=== PATIENT | female | born 1960 | race Caucasian/White ===

== ENCOUNTER → 2016-12-09 | Outpatient (CLI) | payer OTHER | LOC: CIMAGING 13:51 | DX: Z12.31 Encounter for screening mammogram for malignant neoplasm of breast (principal) | CPT/HCPCS: G0202 ==

== ENCOUNTER → 2017-05-18 | Outpatient (CLI) | payer OTHER | LOC: CIMAGING 08:08 | DX: R10.13 Epigastric pain (principal); I70.0 Atherosclerosis of aorta | CPT/HCPCS: 76700-PO ==

== ENCOUNTER → 2017-06-11 | Outpatient (CLI) | payer OTHER | LOC: FIMAGING 08:08 | PROVIDERS: ATTEND Nurse Practitioner Family | DX: R10.13 Epigastric pain (principal); R11.10 Vomiting, unspecified; R19.7 Diarrhea, unspecified; K82.9 Disease of gallbladder, unspecified | CPT/HCPCS: 78227; A9537 ==

== ENCOUNTER 2017-07-28 06:32 | Day surgery (SDC) | payer OTHER ==
[~2017-07-28 06:32] MED LIST: cefOXitin SODIUM 2 GM in STERILE WATER INJ 21 ML IV ONE
[2017-07-28] MEDS ORDERED: LIDOCAINE 1% 2 ML INJ ID PRN (06:53)
[2017-07-28] MEDS ORDERED: LR 1,000 ML IV ONE (06:53)
[2017-07-28 07:20] VITALS: PULSE 63
--- NOTE | 2017-07-28 07:21 | PDHPUP ---
History & Physical Update H&P update statement: This history and physical update is based on an assessment of the patient which was completed after admission or registration (within 24 hours), but prior to the surgery/procedure.
[2017-07-28] MEDS ORDERED: ceFAZolin 1 GM/5 ML SYR ONE (07:22)
[2017-07-28] MEDS ORDERED: BUPIVACAINE 0.5% 30 ML SDV ONE (07:22)
[2017-07-28] MEDS ORDERED: HEPARIN 1000 UNIT/1 ML MDV ONE (07:22)
[2017-07-28] MEDS ORDERED: MIDAZOLAM 2 MG/2 ML VIAL IVP ONE (07:43)
--- NOTE | 2017-07-28 07:48 | PDANEPAE ---
ANE History of Present Illness here for lap balta ANE Past Medical History - Cardiovascular History Hx Hypertension: Yes Hx Arrhythmias: No Hx Chest Pain: No Hx Coronary Artery / Peripheral Vascular Disease: No Hx CHF / Valvular Disease: No Hx Palpitations: No - Pulmonary History Hx COPD: No Hx Asthma/Reactive Airway Disease: No Hx Recent Upper Respiratory Infection: No Hx Oxygen in Use at Home: No Hx Sleep Apnea: No Sleep Apnea Screening Result - Last Documented: Negative - Neurologic History Hx Cerebrovascular Accident: No Hx Seizures: No Hx Dementia: No - Endocrine History Hx Diabetes: No - Renal History Hx Renal Disorders: No - Liver History Hx Hepatic Disorders: No - Neurological & Psychiatric Hx Hx Neurological and Psychiatric Disorders: No - Cancer History Hx Cancer: Yes Cancer History Comment: cervical with mets - Congenital Disorder History Hx Congenital Disorders: No - GI History Hx Gastrointestinal Disorders: Yes Gastrointestinal History Comment: upper abd pain - Chronic Pain History Chronic Pain: Yes - Surgical History Prior Surgeries: tonsillectomy. carpal tunnel release. re-attachment great toe. laparoscopy ANE Review of Systems Review of systems is: negative Review of Systems: - Exercise capacity Exercise capacity: >=4 METS METS (RN): 4 METS ANE Patient History - Allergies Allergies/Adverse Reactions: hydrocodone bitartrate [From Vicodin] Allergy (Verified 07/27/17 16:58) insomnia ibuprofen Allergy (Verified 07/27/17 16:57) HAYFEVER Allergy (Uncoded 03/31/15 19:15) ITCHY EYES/RUNNY NOSE - Home Medications Home medications: home medication list seen and reviewed Home Medications: Aspirin [Aspirin 81mg (OTC)] 81 mg PO DAILY 07/05/12 [Last Taken 06/28/12] ESCITALOPRAM OXALATE [Lexapro] 20 mg PO DAILY 07/05/12 [Last Taken 07/05/12] Simvastatin [Zocor 40 mg (RX)] 40 mg PO DAILY18 07/05/12 [Last Taken 07/05/12] Verapamil ER [Calan SR/ER 240MG (RX)] 240 mg PO DAILY8 07/05/12 [Last Taken 01/08] Neurontin 300 MG (*) DAILY20 07/27/17 [Last Taken Unknown] Omeprazole 07/27/17 [Last Taken Unknown] - NPO status NPO Status: no food or drink >8 hours NPO Since - Liquids (Date): 07/27/17 NPO Since - Liquids (Time): 21:00 NPO Since - Solids (Date): 07/27/17 NPO Since - Solids (Time): 18:00 - Smoking Hx Smoking Status: Current every day smoker - Family Anes Hx Family Hx Anesthesia Complications: none ANE Labs/Vital Signs - Vital Signs Vital Signs: reviewed preoperatively; see RN documention for details Blood Pressure: 105/59 Heart Rate: 63 Respiratory Rate: 16 O2 Sat (%): 96 Height: 165.1 cm Weight: 71.214 kg ANE Physical Exam - Airway Neck exam: FROM Mallampati Score: Class 1 - Pulmonary Pulmonary: no respiratory distress - Cardiovascular Cardiovascular: regular rate and rhythym ANE Anesthesia Plan Anesthesia Plan: general endotracheal anesthesia
[2017-07-28] MEDS ORDERED: PROPOFOL/EMULSION 500 MG/50 ML BOTTLE IV ONE (07:52)
[2017-07-28] MEDS ORDERED: fentaNYL 100 MCG/2 ML INJ ONE ×3 (07:54→09:35)
[2017-07-28] MEDS ORDERED: NALOXONE HCL 0.4 MG/ML INJ IVP PRN ×2 (08:20→09:37)
[2017-07-28] MEDS ORDERED: ALBUTEROL 3 ML DEYVIAL IH PRN (08:20)
[2017-07-28] MEDS ORDERED: DEXAMETHASONE 4 MG/ML VIAL IVP PRN (08:20)
[2017-07-28] MEDS ORDERED: ONDANSETRON 4 MG/2 ML VIAL IVP PRN (08:20)
[2017-07-28] MEDS ORDERED: LR 500 ML IV PRN (08:20)
[2017-07-28] MEDS ORDERED: SUGAMMADEX SODIUM 200 MG/2 ML VIAL IVP ONE (08:48)
[2017-07-28] MEDS ORDERED: HYDROmorphONE/DILAUDID 1 MG/ML INJ ONE ×2 (09:13→09:35)
[2017-07-28] MEDS ORDERED: ONDANSETRON 4 MG/2 ML VIAL ONE ×2 (09:13→09:29)
--- NOTE | 2017-07-28 09:16 | POSTANESTH ---
Post Anesthetic Evaluation Cardiovascular Status: Normal, Stable Respiratory Status: Normal, Stable Level of Consciousness/Mental Status: Can Participate in Eval Pain Control: Adequate, Prn Tx Ordered Nausea/Vomiting Control: Adequate, Prn Tx Ordered Complications Possibly Related to Anesthesia: None Noted
[2017-07-28] MEDS: fentaNYL 100 MCG/2 ML INJ IVP PRN ×3 (09:17→09:40)
[2017-07-28] MEDS: HYDROmorphONE/DILAUDID 1 MG/ML INJ IVP PRN ×3 (09:17→09:41)
--- NOTE | 2017-07-28 09:29 | POSTOPPROG ---
Post Op Note Date of Operation: 07/28/17 Surgeon: Loy Redmond Data Analyst: Toshia Dewitt Anesthesiologist: Greg Faye Anesthesia: GET(General Endotracheal) Pre-op Diagnosis: biliary dyskinesia Post-op Diagnosis: same Procedure: lap balta Findings: thin walled gallbladder, no staones Inf/Abcess present in the surg proc area at time of surgery?: No EBL: Minimal Complications: none Specimen(s): gallbladder to pathology
[2017-07-28] MEDS ORDERED: PROMETHAZINE HCL 25 MG/ML INJ IVP PRN (09:37)
[2017-07-28 11:55] VITALS: RESP 14
[2017-07-28 11:58] VITALS: BP 115/70
[2017-07-28 11:59] VITALS: TEMP 98.8
[2017-07-28 12:28] VITALS: O2SAT 96
--- NOTE | 2017-07-29 14:02 | GOP ---
[f rep st] OPERATIVE REPORT DATE OF OPERATION: 07/28/2017 SURGEON: Loy Redmond MD ENGINEERING DIRECTOR: Annie Trujillo PREOPERATIVE DIAGNOSIS: Biliary dyskinesia. POSTOPERATIVE DIAGNOSIS: Biliary dyskinesia. PROCEDURE PERFORMED: Laparoscopic cholecystectomy. FINDINGS: The patient was found to have a noninflamed gallbladder with no obvious stones. Ducts wer e small. There was no other evidence in the abdomen of metastatic disease. She had some minor adhes ions in the pelvis. ESTIMATED BLOOD LOSS: Negligible. DESCRIPTION OF PROCEDURE: The patient was taken to the operating room where she received satisfactor y general endotracheal anesthesia by Dr. Faye. She was placed in supine position and prepped and d raped in the usual sterile fashion. A periumbilical incision was made, a Veress was needle inserted and pneumoperitoneum was established. A trocar was introduced. Laparoscope introduced. Good visualization was obtained. Three other trocars were placed in the upper abdomen under direct vision. The gallbladder was elevat ed up. Adhesions were taken down. The cystic triangle was carefully exposed. The cystic duct and c ystic artery were isolated and multiply hemoclipped and divided, with care to avoid injury to the com mon bile duct as a good clear view had been created. The peritoneum of the gallbladder was incised a nd the gallbladder was dissected free off the bed of the hepatic fossa and extracted through the uppe r midline port site. The wound was irrigated. Hemostasis was assured. The remainder of the abdomen was visualized with t he laparoscope, with no major findings encountered. Her appendix was normal. She did have some leia r adhesions in the pelvis and no evidence of liver metastases. Trocars were removed under direct vision and pneumoperitoneum was released. Trocar sites were closed with 0 Vicryl for the fascia, 4-0 Monocryl subcuticular stitch for the skin. All layers infiltrated with 0.5% Marcaine. COMPLICATIONS: None. Taken to recovery room in good condition. /[id number]/MODL
== END 2017-07-28 12:25 | disposition home or self-care (01) ==
LOC: FSGY 06:32
PROVIDERS: ATTEND Surgery
PROC: 0FT44ZZ Resection of Gallbladder, Percutaneous Endoscopic Approach (ICD-10-PCS; principal; 2017-07-28 08:00)
DX: K82.8 Other specified diseases of gallbladder (principal)
CPT/HCPCS: J0694; J1170; J2250; J2405; J2704; J3010

== ENCOUNTER 2017-08-27 10:47 | Emergency (ER) | payer OTHER ==
--- NOTE | 2017-08-27 11:30 | EDPHY ---
H & P Stated Complaint: vomiting and diarrhea since 8pm Time Seen by Provider: 08/27/17 11:02 HPI/ROS: CHIEF COMPLAINT: Abdominal pain, vomiting and diarrhea HISTORY OF PRESENT ILLNESS: This is a 57-year-old female with a long history of intermittent abdominal pain. She presents today with over 12 hr of left upper abdominal pain, vomiting, and diarrhea. She states that diarrhea is not an acute problem for her, that she frequently experiences diarrhea. She has had intermittent upper abdominal pain with vomiting for over 4 years. On July 28 of this year she underwent laparoscopic cholecystectomy, with the hopes that her pain would not recur. Prior to that surgery she had nuclear medicine study of her pedal biliary system. It showed gallbladder dysfunction with a decreased ejection fraction of 28%. She had done well postoperatively until last night when she developed pain, vomiting, and diarrhea. She has not had fever. This is consistent with her previous similar episodes. She took a Bentyl 8 hr ago with no relief. She moved her bowels just before coming to the emergency department. She has a history of cervical cancer for which she underwent surgery that revealed metastatic disease. Surgery was followed by radiation and chemotherapy. She states that she is now cancer free. REVIEW OF SYSTEMS: A ten point review of systems was performed and is negative with the exception of the items mentioned in the HPI. Past medical/surgical history: 1. Cervical cancer 2. Hypertension 3. Lower extremity stenting 4. Laparoscopic cholecystectomy Social history: General Appearance: Alert. Vital signs reviewed. Blood pressure 147/101, heart rate 47. Afebrile. Eyes: Pupils equal and round, no conjunctival injection, no discharge. Anicteric. ENT, Mouth: Mucous membranes are moist, no oropharyngeal erythema or edema. Neck: No lymphadenopathy, supple. Respiratory: Lungs are clear to auscultation; no wheezes, rales, or rhonchi. Cardiovascular: Regular rate and rhythm; no murmur, rub, or gallop. Gastrointestinal: Abdomen is soft with mild diffuse tenderness and somewhat worse tenderness in the midepigastrium and left upper quadrant, no guarding,, no masses or organomegaly, bowel sounds hypoactive. Skin: Warm and dry, no rashes on exposed skin, normal color. Back: Nontender to palpation over the thoracolumbar spine. No CVAT. Extremities: No lower extremity edema, no calf tenderness or swelling. Neurological: Alert and oriented. Moving all four extremities easily and equally. Psychiatric: Normal affect. - Personal History Current Tetanus Diphtheria and Acellular Pertussis (TDAP): No Tetanus Vaccine Date: 2009 - Medical/Surgical History Hx Asthma: No Hx Chronic Respiratory Disease: No Hx Diabetes: No Hx Cardiac Disease: No Hx Renal Disease: No Hx Cirrhosis: No Hx Alcoholism: No Hx HIV/AIDS: No Hx Splenectomy or Spleen Trauma: No Other PMH: cervical ca w/ radiation therapy; has lots of scarring/ complications. htn. cholesterol. STENTS IN LEG, balta, recurring abdominal pain. - Social History Smoking Status: Current every day smoker Constitutional: Initial Vital Signs Temperature (C) 36.8 C 08/27/17 10:56 Heart Rate 57 L 08/27/17 10:56 Respiratory Rate 18 08/27/17 10:56 Blood Pressure 147/101 H 08/27/17 10:56 O2 Sat (%) 96 08/27/17 10:56 O2 Delivery Mode Room Air Allergies/Adverse Reactions: ibuprofen Allergy (Verified 08/27/17 11:00) HAYFEVER Allergy (Uncoded 08/27/17 11:00) ITCHY EYES/RUNNY NOSE Home Medications: Medication Instructions Recorded Aspirin [Aspirin 81mg (OTC)] 81 mg PO DAILY 07/05/12 ESCITALOPRAM OXALATE [Lexapro] 20 mg PO DAILY 07/05/12 Simvastatin [Zocor 40 mg (RX)] 40 mg PO DAILY18 07/05/12 Verapamil ER [Calan SR/ER 240MG 240 mg PO DAILY8 07/05/12 (RX)] traMADol [Ultram] 50 mg PO Q4-6PRN PRN #20 tab 10/06/12 Neurontin 300 MG (*) DAILY20 07/27/17 oxyCODONE/APAP 5/325 [Percocet 1 - 2 tab PO Q6H PRN #20 tab 07/28/17 5/325 (*)] Bentyl 10 MG (*) 08/27/17 Ondansetron Odt [Zofran Odt 4 mg 4 mg PO Q4 PRN #10 tab 08/27/17 (RX)] Medical Decision Making ED Course/Re-evaluation: Recurrence of her chronic intermittent abdominal pain and vomiting. In the emergency department she received 2 L IV normal saline, Dilaudid 0.5 mg IV, and Zofran 4 mg IV. She had been taking she acid blocking medications prior to her cholecystectomy but stopped these after the surgery, with the thought that she would be unlikely to need them. She has had multiple attempts at diagnosis in the past and is here today hoping for symptom relief. She was re-evaluated that 12:30 p.m.. At that time she was feeling markedly better. She has not had vomiting and would like to try some ice chips. On re- examine abdomen is soft and mildly diffusely tender, no peritoneal signs. I reviewed her laboratory studies. Liver functions and lipase are normal. She plans to follow up with her primary care physician and also with her surgeon, Dr. Redmond. I do not suspect appendicitis, given the location and chronicity of her pain. Lab studies suggest that this is not pancreatitis. I do not think that she has a bowel obstruction, as she has been having bowel movements. She understands that she is at risk of bowel obstruction, given her surgeries. 1345: Patient was re-evaluated. Abdomen is soft and nontender. Bowel sounds are normal. She has tolerated water and has urinated. She is comfortable returning home. 1400: Patient had a resurgence of her pain. On re-examine her abdomen remains soft and nontender. She was given and oral Percocet. She is comfortable returning home. She has Percocet at home. She is given a prescription for Zofran to use as needed. Differential Diagnosis: Abdominal pain including but not limited to bowel obstruction, appendicitis, biliary colic, gastritis and urinary tract infection. - Data Points Laboratory Results: Laboratory Results 08/27/17 11:30 08/27/17 11:30 08/27/17 08/27/17 11:30 11:30 WBC 9.92 10^3/uL H 10^3/uL (3.80-9.50) RBC 5.21 10^6/uL 10^6/uL (4.18-5.33) Hgb 15.5 g/dL g/dL (12.6-16.3) Hct 46.4 % % (38.0-47.0) MCV 89.1 fL fL (81.5-99.8) MCH 29.8 pg pg (27.9-34.1) MCHC 33.4 g/dL g/dL (32.4-36.7) RDW 12.9 % % (11.5-15.2) Plt Count 255 10^3/uL 10^3/uL (150-400) MPV 8.8 fL fL (8.7-11.7) Neut % (Auto) 91.5 % H % (39.3-74.2) Lymph % (Auto) 6.0 % L % (15.0-45.0) [place] % (Auto) 2.0 % L % (4.5-13.0) Eos % (Auto) 0.0 % L % (0.6-7.6) Baso % (Auto) 0.1 % L % (0.3-1.7) Nucleat RBC Rel Count 0.0 % % (0.0-0.2) Absolute Neuts (auto) 9.07 10^3/uL H 10^3/uL (1.70-6.50) Absolute Lymphs (auto) 0.60 10^3/uL L 10^3/uL (1.00-3.00) Absolute Monos (auto) 0.20 10^3/uL L 10^3/uL (0.30-0.80) Absolute Eos (auto) 0.00 10^3/uL L 10^3/uL (0.03-0.40) Absolute Basos (auto) 0.01 10^3/uL L 10^3/uL (0.02-0.10) Absolute Nucleated RBC 0.00 10^3/uL 10^3/uL (0-0.01) Immature Gran % 0.4 % % (0.0-1.1) Immature Gran # 0.04 10^3/uL 10^3/uL (0.00-0.10) Sodium 141 mEq/L mEq/L (135-145) Potassium 4.1 mEq/L mEq/L (3.5-5.2) Chloride 101 mEq/L mEq/L (97-110) Carbon Dioxide 25 mEq/l mEq/l (22-31) Anion Gap 15 mEq/L mEq/L (8-16) BUN 12 mg/dL mg/dL (7-23) Creatinine 0.7 mg/dL mg/dL (0.6-1.0) Estimated GFR > 60 Glucose 141 mg/dL H mg/dL (70-100) Calcium 9.5 mg/dL mg/dL (8.5-10.4) Total Bilirubin 0.4 mg/dL mg/dL (0.1-1.4) Conjugated Bilirubin 0.2 mg/dL mg/dL (0.0-0.5) Unconjugated Bilirubin 0.2 mg/dL mg/dL (0.0-1.1) AST 18 IU/L IU/L (14-46) ALT 23 IU/L IU/L (9-52) Alkaline Phosphatase 77 IU/L IU/L (38-126) Total Protein 6.8 g/dL g/dL (6.3-8.2) Albumin 4.0 g/dL g/dL (3.5-5.0) Lipase 82 IU/L IU/L (23-300) Medications Given: Discontinued Medications Hydromorphone HCl (Dilaudid) 0.5 mg IVP EDNOW ONE Stop: 08/27/17 11:51 Last Admin: 08/27/17 12:00 Dose: 0.5 mg Sodium Chloride (Ns) 1,000 mls @ 0 mls/hr IV EDNOW ONE; Wide Open PRN Reason: Protocol Stop: 08/27/17 11:42 Last Admin: 08/27/17 11:45 Dose: 1,000 mls Sodium Chloride (Ns) 1,000 mls @ 0 mls/hr IV ONCE ONE PRN Reason: Wide Open Stop: 08/27/17 12:51 Last Admin: 08/27/17 12:55 Dose: 1,000 mls Ondansetron HCl (Zofran) 4 mg IVP EDNOW ONE Stop: 08/27/17 11:42 Last Admin: 08/27/17 11:46 Dose: 4 mg Oxycodone/Acetaminophen (Percocet 5/325) 1 tab PO EDNOW ONE Stop: 08/27/17 14:11 Last Admin: 08/27/17 14:27 Dose: 1 tab Departure - Departure Disposition: Home, Routine, Self-Care Clinical Impression: Abdominal pain Qualifiers: Abdominal location: left upper quadrant Qualified Code(s): R10.12 - Left upper quadrant pain Condition: Good Instructions: Ondansetron (By mouth), Abdominal Pain (ED) Referrals: Briana Benjamin MD [Primary Care Provider] - As per Instructions Loy Redmond MD [Medical Doctor] - As per Instructions Prescriptions: Ondansetron Odt [Zofran Odt 4 mg (RX)] 4 mg PO Q4 PRN #10 tab PRN Reason: nausea
[2017-08-27] MEDS ORDERED: NS 1,000 ML IV ONE ×2 (11:41→12:50)
[2017-08-27] MEDS ORDERED: ONDANSETRON 4 MG/2 ML VIAL IVP ONE (11:41)
[2017-08-27 11:45] LABS: PLATELET COUNT 255 10^3/uL (150-400)
[2017-08-27] MEDS ORDERED: HYDROmorphONE/DILAUDID 2 MG/ML INJ IVP ONE (11:50)
[2017-08-27 13:57] VITALS: BP 112/81; PULSE 77; RESP 16; TEMP 99; O2SAT 93
[2017-08-27] MEDS ORDERED: OXYCODONE/APAP 5/325 TAB PO ONE (14:10)
== END 2017-08-27 14:36 | disposition home or self-care (01) ==
LOC: CED 10:47
DX: R10.12 Left upper quadrant pain (principal); E86.9 Volume depletion, unspecified; I10 Essential (primary) hypertension; F17.200 Nicotine dependence, unspecified, uncomplicated; Z85.41 Personal history of malignant neoplasm of cervix uteri; Z79.82 Long term (current) use of aspirin; Z90.49 Acquired absence of other specified parts of digestive tract
CPT/HCPCS: 80048-PO; 80076-PO; 83690-PO; 85025-PO; 96374; J1170; J2405

== ENCOUNTER → 2017-09-04 | Outpatient (CLI) | payer OTHER | LOC: FIMAGING 09:22 | PROVIDERS: ATTEND Surgery | DX: K44.9 Diaphragmatic hernia without obstruction or gangrene (principal); K57.12 Diverticulitis of small intestine without perforation or abscess without bleeding ==

== ENCOUNTER 2018-02-19 07:35 | Emergency (ER) | payer OTHER ==
--- NOTE | 2018-02-19 07:41 | EDPHY ---
H & P Time Seen by Provider: 02/19/18 07:40 HPI/ROS: CHIEF COMPLAINT: Left leg and groin pain HISTORY OF PRESENT ILLNESS: Patient had a procedure including an enema down at [facility] just over 2 weeks ago as part of evaluation for colonic reconstructions secondary to her cervical cancer. Couple of days after that she started getting pain in her left groin and left upper leg which is moderate at rest and severe with certain motions. She says that moving or lifting her left leg makes it worse. It is not associated with fever or chills or weakness or numbness in the left foot. It is not associated with any change in her abdominal symptoms. She did get a little bit of red blotchy rash which has been on and off for the past couple of days. This rash is located on the anterior thigh. No back pain and no leg swelling. REVIEW OF SYSTEMS: Eye: no change in vision ENT: no sore throat Cardiac: no chest pain or syncope Pulmonary: no cough or SOB Abdomen: She has intermittent abdominal pain in no change with this, she has some chronic diarrhea which is unchanged, no vomiting. Musculoskeletal: HPI Skin: HPI no vesicles Neuro: No weakness or numbness in the left foot Constitutional: no fever : no urinary symptoms A comprehensive 10 point review of systems is otherwise negative aside from elements mentioned in the history of present illness. PAST MEDICAL HISTORY: Emergency department visit dated 08/27/2017 personally reviewed includes laparoscopic cholecystectomy, hypertension, metastatic cervical cancer, venous vascular stent in left leg by Dr. Cleaning for compression occlusion from cancer but without DVT, chronic intermittent abdominal pain and vomiting Social history: Tobacco smoker General Appearance: Alert and conversant, cooperative. Eyes: No scleral icterus. ENT, Mouth: Normal mucous membranes. Respiratory: Normal respiratory effort, breath sounds equal, lungs are clear to auscultation. Cardiovascular: Regular rate and rhythm. Normal dorsalis pedis pulse in the left foot. Gastrointestinal: Abdomen is soft and non tender. No inguinal hernia palpated. Non tender above the inguinal ligament area. Neurological: Alert, face symmetric, normal motor and sensory in extremities. Ambulatory to the room. Toes downgoing bilaterally. Normal dorsiflexion and plantarflexion. SLR negative. Skin: She has 2 or 3 very faint papules on the left anterior thigh but no vesicles, no urticaria, no petechiae or purpura, not mottled. Not hot or cold to the touch. No lymphangitis. Musculoskeletal: Patient has pain in the left groin with external rotation of her hip. She has pain when I palpate in the proximal left thigh and inguinal area on the musculature. No masses or hernia or firm area is palpated. Compartments in left thigh are soft. No pain with internal rotation. Psychiatric: Not agitated. Emergency Department course/MDM: Think it is unlikely the patient has arterial occlusion, incarcerated hernia, hip joint infection, bowel obstruction or acute surgical abdominal process, or shingles. Plan for ultrasound to evaluate for reocclusion of the left leg stent and x-ray to look at her left hip. Patient declined additional pain medications, her goal in the ED visit is to ensure she does not have acute medical or surgical emergent condition. 842: [place], no DVT, normal exam, no fluid collection or stent problem seen. Xray personally interpreted as negative. More likely to be muscular, groin strain, symptomatic treatment discussed, she says she has adequate resources/medications for pain at home. Smoking Status: Current every day smoker Constitutional: Initial Vital Signs Temperature (C) 37.0 C 02/19/18 07:57 Heart Rate 84 02/19/18 07:57 Respiratory Rate 20 02/19/18 07:57 Blood Pressure 125/83 H 02/19/18 07:57 O2 Sat (%) 96 02/19/18 07:57 O2 Delivery Mode Room Air Allergies/Adverse Reactions: ibuprofen Allergy (Verified 02/19/18 08:02) HAYFEVER Allergy (Uncoded 08/27/17 11:00) ITCHY EYES/RUNNY NOSE Home Medications: Medication Instructions Recorded Aspirin [Aspirin 81mg (OTC)] 81 mg PO DAILY 07/05/12 ESCITALOPRAM OXALATE [Lexapro] 20 mg PO DAILY 07/05/12 Simvastatin [Zocor 40 mg (RX)] 40 mg PO DAILY18 07/05/12 Verapamil ER [Calan SR/ER 240MG 240 mg PO DAILY8 07/05/12 (RX)] traMADol [Ultram] 50 mg PO Q4-6PRN PRN #20 tab 10/06/12 Neurontin 300 MG (*) DAILY20 07/27/17 oxyCODONE/APAP 5/325 [Percocet 1 - 2 tab PO Q6H PRN #20 tab 07/28/17 5/325 (*)] Bentyl 10 MG (*) 08/27/17 Ondansetron Odt [Zofran Odt 4 mg 4 mg PO Q4 PRN #10 tab 08/27/17 (RX)] Medical Decision Making - Diagnostics Imaging Results: Imaging Impressions Extremity Venous Study 02/19/18 08:09 Impression: Negative for left lower extremity DVT. Findings and recommendations discussed with JOHN CRAIG at 0842 hour, 2017. Hip X-Ray 02/19/18 08:09 Impression: 1. 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 2. Might the patient symptoms be related to cyst iliac artery stent malfunction or referred from the lumbar spine? Imaging: Discussed imaging studies w/ order desk caller Radiologist, I viewed and interpreted images myself Departure - Departure Disposition: Home, Routine, Self-Care Clinical Impression: Left inguinal pain Condition: Good Instructions: Groin Pain (ED) Additional Instructions: symptomatic treatment as discussed Referrals: Briana Benjamin MD [Primary Care Provider] - 5-7 days, if not improved
[2018-02-19 08:51] VITALS: BP 128/74
== END 2018-02-19 08:55 | disposition home or self-care (01) ==
LOC: CED 07:35
DX: R10.30 Lower abdominal pain, unspecified (principal); M79.605 Pain in left leg; F17.200 Nicotine dependence, unspecified, uncomplicated
CPT/HCPCS: 73502-PO; 93971-PO

== ENCOUNTER → 2018-03-04 | Outpatient (CLI) | payer OTHER | LOC: CIMAGING 15:40 | PROVIDERS: ATTEND Family Medicine | DX: M25.552 Pain in left hip (principal) | CPT/HCPCS: 73502-PO ==

== ENCOUNTER 2018-03-26 16:40 | Emergency (ER) | payer OTHER ==
[2018-03-26] MEDS ORDERED: ONDANSETRON 4 MG/2 ML VIAL ONE (17:08)
[2018-03-26] MEDS ORDERED: NS 1,000 ML IV ONE (17:10)
[2018-03-26] MEDS ORDERED: ONDANSETRON 4 MG/2 ML VIAL IVP ONE (17:10)
[2018-03-26] MEDS ORDERED: HYDROmorphONE/DILAUDID 2 MG/ML INJ IM ONE (17:16)
--- NOTE | 2018-03-26 17:19 | EDPHY ---
H & P Stated Complaint: severe abdominal pain Time Seen by Provider: 03/26/18 16:55 HPI/ROS: CHIEF COMPLAINT: Abdominal pain History by patient HISTORY OF PRESENT ILLNESS: 50-year-old woman with a history of cervical cancer for which she has had surgery and radiation who has a long history of episodes that she says are obstruction related due to narrowing of her distal colon and for which she is actually scheduled to get a colostomy next month presents today with symptoms are typical of her obstructive episodes. She says that she ate yesterday and she is feeling okay this morning she ate a Pop Tart but subsequently has had severe lower mostly left-sided abdominal pain as well as nausea and vomiting. She did have a normal bowel movement for her earlier. There was no blood or diarrhea. She denies any fever. She has some chronic urinary symptoms due to the radiation changes but these are unchanged and she says"I do not have a UTI". She has never been admitted to the hospital for these episodes however she says she gets them frequently in her last 1 was a week or so ago which she weathered at home. REVIEW OF SYSTEMS: As in HPI, and all other systems reviewed and are negative Source: Patient - Personal History Current Tetanus Diphtheria and Acellular Pertussis (TDAP): Yes Tetanus Vaccine Date: 2009 - Medical/Surgical History Hx Asthma: No Hx Chronic Respiratory Disease: No Hx Diabetes: No Hx Cardiac Disease: No Hx Renal Disease: No Hx Cirrhosis: No Hx Alcoholism: No Hx HIV/AIDS: No Hx Splenectomy or Spleen Trauma: No Other PMH: cervical ca w/ radiation therapy; has lots of scarring/ complications. htn. cholesterol. STENTS IN LEG, balta, recurring abdominal pain,bowel obstructions - Social History Smoking Status: Current every day smoker - Physical Exam Exam: General Appearance: Alert, uncomfortable appearing. Eyes: Pupils equal and round, extraocular movements intact, no pallor or injection. Mouth: Mucous membranes moist. Pharynx clear Respiratory: Normal, effort, lungs are clear to auscultation. No wheezes, rales or rhonchi. Cardiovascular: Regular rate and rhythm. S1, S2, no murmurs, gallops or rubs appreciated Gastrointestinal: bowel sounds present, Abdomen is soft and nondistended, no masses, positive diffuse left greater than right lower quadrant pain Back: No CVA tenderness, no bony tenderness Neurological: Awake, alert and oriented x 3, no pronator drift, normal gait, no pronator drift Skin: Warm and dry, no rashes. Musculoskeletal: No deformities or tenderness. Extremities: full range of motion, no edema Psychiatric: Patient has normal affect, there is no agitation. Constitutional: Initial Vital Signs Temperature (C) 36.9 C 03/26/18 16:52 Heart Rate 58 L 03/26/18 16:52 Respiratory Rate 20 03/26/18 16:52 Blood Pressure 179/86 H 03/26/18 16:52 O2 Sat (%) 96 03/26/18 16:52 O2 Delivery Mode Room Air Allergies/Adverse Reactions: ibuprofen Allergy (Verified 03/26/18 16:51) HAYFEVER Allergy (Uncoded 08/27/17 11:00) ITCHY EYES/RUNNY NOSE Home Medications: Medication Instructions Recorded Aspirin [Aspirin 81mg (OTC)] 81 mg PO DAILY 07/05/12 ESCITALOPRAM OXALATE [Lexapro] 20 mg PO DAILY 07/05/12 Simvastatin [Zocor 40 mg (RX)] 40 mg PO DAILY18 07/05/12 Verapamil ER [Calan SR/ER 240MG 240 mg PO DAILY8 07/05/12 (RX)] traMADol [Ultram] 50 mg PO Q4-6PRN PRN #20 tab 10/06/12 Neurontin 300 MG (*) DAILY20 07/27/17 oxyCODONE/APAP 5/325 [Percocet 1 - 2 tab PO Q6H PRN #20 tab 07/28/17 5/325 (*)] Ondansetron Odt [Zofran Odt 4 mg 4 mg PO Q4 PRN #10 tab 08/27/17 (RX)] Cephalexin 500 mg PO BID #20 capsule 03/26/18 Medical Decision Making ED Course/Re-evaluation: 50-year-old woman with history of multiple episodes of lower abdominal pain related to chronic colon changes due to radiation treatment for cervical cancer presents today with her typical symptoms. Patient was given IV fluids, Zofran and Dilaudid with improvement and on re-evaluation she said she was feeling better and the pain was"tolerable"and she declined further treatment. Labs were notable for elevated white blood cell count but otherwise unremarkable. Urinalysis was consistent with urinary tract infection with positive leukocytes , blood and nitrites. Therefore the patient was started on oral Keflex as I was concerned with her chronic urinary symptoms was unclear whether this could have made her lower abdominal pain worse.. We discussed return precautions. Patient was discharged home in improved condition. - Data Points Laboratory Results: Laboratory Results 03/26/18 17:55 03/26/18 03/26/18 03/26/18 18:17 17:58 17:55 WBC 12.80 10^3/uL H 10^3/uL (3.80-9.50) RBC 5.28 10^6/uL 10^6/uL (4.18-5.33) Hgb 15.7 g/dL g/dL (12.6-16.3) Hct 46.8 % % (38.0-47.0) MCV 88.6 fL fL (81.5-99.8) MCH 29.7 pg pg (27.9-34.1) MCHC 33.5 g/dL g/dL (32.4-36.7) RDW 13.2 % % (11.5-15.2) Plt Count 275 10^3/uL 10^3/uL (150-400) MPV 9.2 fL fL (8.7-11.7) Neut % (Auto) 90.5 % H % (39.3-74.2) Lymph % (Auto) 6.1 % L % (15.0-45.0) Moca % (Auto) 2.6 % L % (4.5-13.0) Eos % (Auto) 0.2 % L % (0.6-7.6) Baso % (Auto) 0.2 % L % (0.3-1.7) Nucleat RBC Rel Count 0.0 % % (0.0-0.2) Absolute Neuts (auto) 11.59 10^3/uL H 10^3/uL (1.70-6.50) Absolute Lymphs (auto) 0.78 10^3/uL L 10^3/uL (1.00-3.00) Absolute Monos (auto) 0.33 10^3/uL 10^3/uL (0.30-0.80) Absolute Eos (auto) 0.02 10^3/uL L 10^3/uL (0.03-0.40) Absolute Basos (auto) 0.03 10^3/uL 10^3/uL (0.02-0.10) Absolute Nucleated RBC 0.00 10^3/uL 10^3/uL (0-0.01) Immature Gran % 0.4 % % (0.0-1.1) Immature Gran # 0.05 10^3/uL 10^3/uL (0.00-0.10) POC Sodium 141 mEq/L mEq/L (135-145) POC Potassium 3.5 mEq/L mEq/L (3.3-5.0) POC Chloride 99.0 mEq/L mEq/L (97-110) POC Total CO2 27 mEq/L mEq/L (22-31) POC BUN 7 mg/dL mg/dL (7-23) POC Creatinine 1.0 mg/dL mg/dL (0.6-1.0) POC Glucose 165 mg/dL H mg/dL (70-100) POC Calcium 10.0 mg/dL mg/dL (8.5-10.4) POC Total Bilirubin 0.4 mg/dL mg/dL (0.1-1.4) POC GGT 6 IU/L IU/L (5-65) POC AST 24 IU/L IU/L (14-46) POC ALT 13 IU/L IU/L (9-52) POC Alk Phosphatase 87 IU/L IU/L (38-126) POC Total Protein 7.0 g/dL g/dL (6.3-8.2) POC Albumin 4.2 g/dL g/dL (3.5-5.0) POC Amylase 44 IU/L IU/L (30-110) Medications Given: Discontinued Medications Hydromorphone HCl (Dilaudid) 0.5 mg IM EDNOW ONE Stop: 03/26/18 17:17 Last Admin: 03/26/18 17:23 Dose: 0.5 mg Sodium Chloride (Ns) 1,000 mls @ 0 mls/hr IV ONCE ONE PRN Reason: Wide Open Stop: 03/26/18 17:11 Last Admin: 03/26/18 17:13 Dose: 1,000 mls Ondansetron HCl (Zofran) 4 mg IVP EDNOW ONE Stop: 03/26/18 17:11 Last Admin: 03/26/18 17:12 Dose: 4 mg Point of Care Test Results: Chemistry 03/26/18 03/26/18 18:17 17:58 POC Sodium 141 mEq/L mEq/L (135-145) POC Potassium 3.5 mEq/L mEq/L (3.3-5.0) POC Chloride 99.0 mEq/L mEq/L (97-110) POC Total CO2 27 mEq/L mEq/L (22-31) POC BUN 7 mg/dL mg/dL (7-23) POC Creatinine 1.0 mg/dL mg/dL (0.6-1.0) POC Glucose 165 mg/dL H mg/dL (70-100) POC Calcium 10.0 mg/dL mg/dL (8.5-10.4) POC Total Bilirubin 0.4 mg/dL mg/dL (0.1-1.4) POC GGT 6 IU/L IU/L (5-65) POC AST 24 IU/L IU/L (14-46) POC ALT 13 IU/L IU/L (9-52) POC Alk Phosphatase 87 IU/L IU/L (38-126) POC Total Protein 7.0 g/dL g/dL (6.3-8.2) POC Albumin 4.2 g/dL g/dL (3.5-5.0) POC Amylase 44 IU/L IU/L (30-110) Liver Function Tests LFT Collection Date 03/26/18 LFT Collection Time 17:06 Urine Dip Collection Date 03/26/18 Collection Time 18:25 Specific [place] (1.002-1.030) 1.030 PH (5.0-7.5) 5.5 Leukocytes (Negative) 1+ Nitrites (Negative) Positive Protein (Negative) Trace Glucose (Negative) Negative Ketones (Negative) 2+ Urobilnogen (0.2-1.0 EU) 0.2 Bilirubin (Negative) Negative Blood (Negative) 2+ Departure - Departure Disposition: Home, Routine, Self-Care Clinical Impression: Abdominal pain Qualifiers: Abdominal location: left lower quadrant Qualified Code(s): R10.32 - Left lower quadrant pain Urinary tract infection Qualifiers: Urinary tract infection type: site unspecified Hematuria presence: with hematuria Qualified Code(s): N39.0 - Urinary tract infection, site not specified ; R31.9 - Hematuria, unspecified; R31.9 - Hematuria, unspecified Condition: Fair Instructions: Acute Abdominal Pain (ED), Urinary Tract Infection in Women (ED) Additional Instructions: You were seen by Dr. Aylin Rothman today. We are treating you for urinary tract infection today with Keflex antibiotics. I recommend taking probiotics in between doses of antibiotics. Return for any worsening or new concerns including but not limited to fever, pain out of control, vomiting or new concerns. Please follow up with her regular primary care physician and surgeon as scheduled. Referrals: Briana Benjamin MD [Primary Care Provider] - As per Instructions Prescriptions: Cephalexin 500 mg PO BID #20 capsule
[2018-03-26 18:42] LABS: PLATELET COUNT 275 10^3/uL (150-400)
[2018-03-26 19:02] VITALS: BP 109/67
[2018-03-26] MEDS ORDERED: CEPHALEXIN 500MG PREPACK#4 BTL TAKEHOME ONE (19:37)
== END 2018-03-26 19:49 | disposition home or self-care (01) ==
LOC: CED 16:40
DX: R10.32 Left lower quadrant pain (principal); R31.9 Hematuria, unspecified; F17.200 Nicotine dependence, unspecified, uncomplicated
CPT/HCPCS: 80048-PO; 80076-PO; 82150-PO; 96374; J1170; J2405

== ENCOUNTER → 2018-08-11 | Outpatient (CLI) | payer OTHER ==
[~2018-08-11] MED LIST changes: +IOPAMIDOL (ISOVUE-300) 100 ML BTL ONE; -cefOXitin SODIUM 2 GM in STERILE WATER INJ 21 ML IV ONE
== END ==
LOC: CIMAGING 09:17
PROVIDERS: ATTEND Nurse Practitioner Family
DX: R10.84 Generalized abdominal pain (principal)
CPT/HCPCS: 74177-PO; Q9967

== ENCOUNTER 2018-08-16 21:09 | Emergency (ER) | payer OTHER ==
--- NOTE | 2018-08-16 22:04 | EDPHY ---
H & P Stated Complaint: Epigastric pain-Dr Chanel lawrence xray Time Seen by Provider: 08/16/18 21:30 HPI/ROS: 58-year-old female presents complaining of epigastric abdominal pain. She has a prior history of cancer requiring a colostomy. She has had abdominal pain for approximately 4 years. She follows with a moving picture producer to recommend that the next time that she had severe pain to get a plain abdominal film to check for small bowel obstruction. She arrives tonight complaining of severe epigastric abdominal pain no vomiting , she has had some loose stool in her colostomy bag. She takes both Ultram and Percocet at times for her pain. Review of systems As per HPI General no fever no chills no weakness HEENT no eye pain no eye discharge. No eye redness, no sore throat Respiratory no cough, no shortness of breath Cardiac no chest pain, no peripheral edema GI positive abdominal pain, positive loose stool/ diarrhea, no constipation, no nausea, no vomiting no flank pain, no hematuria, no dysuria Musculoskeletal no myalgias, no joint pain Heme no easy bruising, no easy bleeding Endo no polyuria, no polydipsia Skin no rashes, no pruritus Neuro no syncope, no dizziness, no headaches Psych is no suicidal ideation, no homicidal ideation Source: Patient Exam Limitations: No limitations - Personal History Current Tetanus Diphtheria and Acellular Pertussis (TDAP): Yes Tetanus Vaccine Date: 2009 - Medical/Surgical History Hx Asthma: No Hx Chronic Respiratory Disease: No Hx Diabetes: No Hx Cardiac Disease: Yes Hx Renal Disease: No Hx Cirrhosis: No Hx Alcoholism: No Hx HIV/AIDS: No Hx Splenectomy or Spleen Trauma: No Other PMH: cervical ca w/ radiation therapy; has lots of scarring/ complications. HTN. cholesterol. STENTS IN LEG, balta, recurring abdominal pain,bowel obstructions, colostomy. - Family History Significant Family History: No pertinent family hx - Social History Smoking Status: Heavy smoker Alcohol Use: None Drug Use: None - Physical Exam Exam: 58-year-old female alert and oriented in no acute distress nontoxic appearance, afebrile HEENT atraumatic normocephalic, extraocular muscles intact, anicteric Oropharynx negative for erythema negative exudate, tolerating her own secretions Neck supple no meningismus Lungs clear to auscultation bilaterally Heart regular rate and rhythm without murmur rub or gallop Abdomen nondistended normoactive bowel sounds soft, tender to palpation epigastric area no rebound no guarding No distention no tinkling sounds Back no CVA tenderness, no step-offs, no spinal tenderness Extremities no cyanosis clubbing or edema Neuro alert and oriented, no focal deficits Constitutional: Initial Vital Signs Temperature (C) 37.2 C 08/16/18 21:23 Heart Rate 78 08/16/18 21:23 Respiratory Rate 16 08/16/18 21:23 Blood Pressure 113/68 08/16/18 21:23 O2 Sat (%) 96 08/16/18 21:23 O2 Delivery Mode Room Air Allergies/Adverse Reactions: ibuprofen Allergy (Intermediate, Verified 08/16/18 21:21) Hives HAYFEVER Allergy (Uncoded 08/27/17 11:00) ITCHY EYES/RUNNY NOSE Home Medications: Medication Instructions Recorded Aspirin [Aspirin 81mg (OTC)] 81 mg PO DAILY 07/05/12 ESCITALOPRAM OXALATE [Lexapro] 20 mg PO DAILY 07/05/12 Simvastatin [Zocor 40 mg (RX)] 40 mg PO DAILY18 07/05/12 Verapamil ER [Calan SR/ER 240MG 240 mg PO DAILY8 07/05/12 (RX)] traMADol [Ultram] 50 mg PO Q4-6PRN PRN #20 tab 10/06/12 Neurontin 300 MG (*) DAILY20 07/27/17 oxyCODONE/APAP 5/325 [Percocet 1 - 2 tab PO Q6H PRN #20 tab 07/28/17 5/325 (*)] Ondansetron Odt [Zofran Odt 4 mg 4 mg PO Q4 PRN #10 tab 08/27/17 (RX)] Medical Decision Making - Diagnostics Imaging Results: Imaging Impressions Abdomen X-Ray 08/16/18 21:38 Impression: 1. No significantly dilated loops of bowel. Normal-appearing ostomy near the left iliac crest level. ED Course/Re-evaluation: Patient seen and evaluated for intermittent epigastric pain. Patient is specifically here to get a plain film of her abdomen as recommended by her moving picture producer. She has had pain intermittently for 4 years and recently had a CT scan of the abdomen however they recommended that when she is having extreme pain to come and get a plain film to rule out bowel obstruction. Plain films show no evidence of bowel obstruction however a very heavy stool burden Impression Epigastric pain, chronic Constipation Plan Home [employer] Follow up with your moving picture producer Differential Diagnosis: Differential diagnosis considered but not limited to Irritable bowel, bowel obstruction, enteritis, gastroenteritis, chronic abdominal pain, constipation secondary to narcotics Departure - Departure Disposition: Home, Routine, Self-Care Clinical Impression: Epigastric abdominal pain, Constipation due to opioid therapy Condition: Good Instructions: Constipation (ED) Referrals: Gastroenterology [facility] [Provider Group] - As per Instructions
[2018-08-16 22:18] VITALS: BP 123/76
== END 2018-08-16 22:10 | disposition home or self-care (01) ==
LOC: CED 21:09
DX: R10.13 Epigastric pain (principal); K59.03 Drug induced constipation
CPT/HCPCS: 74022-PO; 99283-ER